=== PATIENT | male | born 1995 | race Caucasian/White ===

== ENCOUNTER 2019-06-28 07:28 | Emergency (ER) | payer OTHER ==
[~2019-06-28] VITALS: Ht 180.3 cm; Wt 53.8 kg
[2019-06-28 07:30] VITALS: BP 139/86
== END 2019-06-28 10:36 | disposition home or self-care (01) ==
LOC: ED 10:30
DX: S61.213A Laceration without foreign body of left middle finger without damage to nail, initial encounter (principal); J45.909 Unspecified asthma, uncomplicated; W45.8XXA Other foreign body or object entering through skin, initial encounter; Y93.89 Activity, other specified; Y92.69 Other specified industrial and construction area as the place of occurrence of the external cause; Y99.8 Other external cause status
CPT/HCPCS: 12041; 99284